=== PATIENT | female | born 1975 | race Caucasian/White ===

== ENCOUNTER 2019-12-05 11:18 | Emergency (ER) | payer SELFPAY ==
[~2019-12-05] VITALS: Ht 160 cm; Wt 66.0 kg
[2019-12-05] MEDS ORDERED: TETRACAINE 0.5% OPHTH DROPS 4ML LEFTEYE ONE (12:45)
[2019-12-05] MEDS ORDERED: FLUORESCEIN SODIUM 1MG/STRIP LEFTEYE ONE (13:45)
[2019-12-05] MEDS ORDERED: BALANCED SALT IRRIG SOLN 15ML IR ONE (13:45)
[2019-12-05] MEDS ORDERED: NEO/POLYMYX B SULF/DEXAMETH OPHTH OINT 3.5GM LEFTEYE SCH (14:45)
[2019-12-05] MEDS ORDERED: NEOMY SULF/BACITRAC ZN/POLY/HC 1 APP TUBE LEFTEYE SCH (15:30)
[2019-12-05 15:50] VITALS: BP 134/78
== END 2019-12-05 15:57 | disposition home or self-care (01) ==
LOC: ER 11:18
DX: T55.0X1A Toxic effect of soaps, accidental (unintentional), initial encounter (principal); T26.62XA Corrosion of cornea and conjunctival sac, left eye, initial encounter; T79.8XXA Other early complications of trauma, initial encounter; Y93.89 Activity, other specified; Y92.89 Other specified places as the place of occurrence of the external cause; Y99.8 Other external cause status
CPT/HCPCS: 99284; Z7610

== ENCOUNTER 2024-04-01 00:52 | Emergency (ER) | payer OTHER ==
[~2024-04-01] VITALS: Ht 170.2 cm; Wt 78.0 kg
[2024-04-01 01:19] VITALS: BP 134/87; PULSE 79; RESP 18; TEMP 98.4; O2SAT 99
[2024-04-01] MEDS: KETOROLAC 30MG/ML VIAL IM ONE (02:42)
[2024-04-01] MEDS: HYDROCODONE/ACETAMINOPHEN 5/325MG TABLET PO ONE (02:42)
[2024-04-01] MEDS ORDERED: ACET-2708 MT (03:47)
== END 2024-04-01 04:12 | disposition home or self-care (01) ==
LOC: ER 00:52
DX: M25.512 Pain in left shoulder (principal)
CPT/HCPCS: 81025; 73030; 96372; 99283; J1885; Z7610

== ENCOUNTER 2024-09-03 11:49 | Emergency (ER) | payer OTHER ==
[~2024-09-03] VITALS: Ht 170.2 cm; Wt 70.0 kg
[~2024-09-03 11:49] MED LIST: ACET-2708 MT
[2024-09-03 11:54] VITALS: O2SAT 100
[2024-09-03] MEDS: KETOROLAC 30MG/ML VIAL IM ONE (12:43)
[2024-09-03] MEDS: ACETAMINOPHEN 325MG TABLET PO ONE (12:44)
[2024-09-03 13:45] LABS: HCG SCREEN NEGATIVE
[2024-09-03] MEDS ORDERED: NAPR-681 MT (14:03)
[2024-09-03 14:27] VITALS: BP 135/84; PULSE 71; RESP 16; TEMP 36.66960; O2SAT 100
== END 2024-09-03 14:29 | disposition home or self-care (01) ==
LOC: ER 12:02
DX: M54.2 Cervicalgia (principal); M54.9 Dorsalgia, unspecified; Z79.1 Long term (current) use of non-steroidal anti-inflammatories (NSAID)
CPT/HCPCS: 99285; 72125; 84703; 72128; 72131; 96372; J1885